=== PATIENT | male | born 2000 | race Caucasian/White ===

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

== ENCOUNTER 2019-05-13 15:00 | Outpatient (CLI) | payer OTHER ==
--- NOTE | 2019-05-13 16:53 | Ultrasound Report ---
Reason: LT RETROTESTICULAR VEINS AND SOFT TISSUE SWELLING Procedure Date: 05/13/2019 Accession Number: [id number] / [id number] Procedure: US - Testicle CPT Code: Final Report FULL RESULT: EXAM: SCROTAL ULTRASOUND EXAM DATE: 05/13/2019 03:12 PM. CLINICAL HISTORY: LT RETROTESTICULAR VEINS AND SOFT TISSUE SWELLING. COMPARISON: None. TECHNIQUE: Real-time scanning was performed with static images obtained. Color-flow images were utilized. FINDINGS: Right: Testis: 5.1 x 2.8 x 3.6 cm. Normal size and echotexture. No mass, calcification, or abnormal blood flow. Epididymis: 1.2 x 1.7 x 2.7 cm. Normal size and echotexture. No mass or abnormal blood flow. Hydrocele: None. Varicocele: None. Left: Testis: 5 x 2.7 x 3.2 cm. Normal size and echotexture. No mass, calcification, or abnormal blood flow. Epididymis: 1.3 x 1.6 x 2.4 cm. Normal size and echotexture. No mass or abnormal blood flow. Hydrocele: None. Varicocele: Small to moderate size, the largest vessel 5 mm with Valsalva. IMPRESSION: Small to moderate sized left varicocele, uncertain etiology; otherwise, unremarkable scrotal ultrasound. RADIA
== END 2019-05-13 15:01 | disposition home or self-care (01) ==
LOC: DI 15:00
PROVIDERS: ATTEND Pediatrics
DX: I86.1 Scrotal varices (principal)
CPT/HCPCS: 76870; 93976

== ENCOUNTER 2022-12-29 11:19 | Outpatient (CLI) | payer BC, OTHER | END 2022-12-29 23:59 | disposition home or self-care (01) | LOC: LAB 11:19 | PROVIDERS: ATTEND Physician Assistant Medical | DX: J02.8 Acute pharyngitis due to other specified organisms (principal) | CPT/HCPCS: 87070 ==

== ENCOUNTER 2023-01-21 16:29 | Outpatient (CLI) | payer OTHER ==
--- NOTE | 2023-01-21 19:48 | XRAY Report ---
PROCEDURE: Ankle 3 View LT INDICATIONS: LEFT ANKLE SPRAIN TECHNIQUE: 3 views of the ankle were acquired. COMPARISON: None. FINDINGS: Bones: No fractures or dislocations. Ankle mortise is normally aligned. No suspicious bony lesions . Soft tissues: No tibiotalar joint effusion. Achilles tendon appears normal. IMPRESSION: No acute bony abnormality. Reviewed by: Siva Vivas MD on 01/21/2023 6:46 PM AKBRANDY Approved by: Siva Vivas MD on 01/21/2023 6:46 PM AKDT Station ID: [id number]
== END 2023-01-21 23:59 | disposition home or self-care (01) ==
LOC: DI.S 16:29
PROVIDERS: ATTEND Physician Assistant Medical
DX: S93.492A Sprain of other ligament of left ankle, initial encounter (principal)